=== PATIENT | female | born 1940 | race African-American/Black ===

== ENCOUNTER 2017-05-13 20:24 | Emergency (ER) | payer MEDICARE, OTHER ==
[~2017-05-13] VITALS: Ht 175.3 cm; Wt 61.2 kg
[~2017-05-13 20:24] MED LIST: BENADRYL25 M3 PO; NORCO 5-325 TA1 EACH ORAL; PHENERGAN6.25 MG/5 ORAL; PREDNISONE20 MG ORAL; RANITIDINE HCL150 MG ORAL; TESSALON PERLE100 M2 ORAL
[2017-05-13 21:00] VITALS: BP 184/95
[2017-05-13 21:30] VITALS: BP 184/95
--- NOTE | 2017-05-13 23:52 | Emergency Room Report ---
History of Present Illness General Chief Complaint: General Complaint Source: Patient Present Illness HPI 69-year-old female presenting with blisters in mouth or more than one week. Patient states that she had one blister in her mouth 2 weeks ago which went away , states that she had a right blister/bubble that she noticed today. Patient denies any pain. Patient states that she put Orajel without relief. Allergies: Coded Allergies: PEPPERMINT (Verified Allergy, Severe, cant breath, 01/24/15) ASPIRIN (Verified Allergy, Mild, ABDOMINAL PAIN, 10/06/11) Patient History Past Medical History: see triage record Past Surgical History: none Pertinent Family History: none Last Menstrual Period: n/a Reviewed Nursing Documentation: PMH: Agreed, PSxH: Agreed Nursing Documentation-PMH Hx Cardiac Problems: Yes - HIGH CHOL Hx Hypertension: Yes Hx Cancer: Yes - thyroid with Surgery. Hx Gastrointestinal Problems: Yes - colon surgery for cyst Review of Systems All Other Systems: negative except mentioned in HPI Physical Exam Vital Signs Date Time Temp Pulse Resp B/P (MAP) Pulse Ox O2 Delivery O2 Flow Rate FiO2 05/13/17 20:53 98.1 59 18 184/95 99 Room Air Sp02 EP Interpretation: reviewed, normal General Appearance: normal inspection, well appearing, no apparent distress, alert, GCS 15, non-toxic Head: normocephalic, atraumatic Eyes: bilateral eye normal inspection, bilateral eye PERRL, bilateral eye EOMI ENT: normal voice, moist mucus membranes, other - Right lower molars absent, 2 x 2 palpable purpleish fluid-filled, abnormality, and not painful, and no signs of infection Neck: normal inspection, full range of motion, supple Respiratory: normal inspection, lungs clear, normal breath sounds, no respiratory distress, no retraction, no wheezing, speaking full sentences, chest symmetrical Cardiovascular #1: normal inspection, regular rate, rhythm, no edema, normal capillary refill Cardiovascular #2: 2+ radial (R), 2+ radial (L) Gastrointestinal: normal inspection, non tender, soft, non-distended, no guarding Musculoskeletal: normal inspection, back normal, normal range of motion, non- tender Neurologic: normal inspection, alert, oriented x3, responsive, motor strength/ tone normal, sensory intact, normal gait, speech normal Psychiatric: normal inspection, judgement/insight normal, memory normal Skin: normal inspection, normal color, no rash, warm/dry, well hydrated, normal turgor Medical Decision Making Diagnostic Impression: Primary Impression: Chronic gum disease ER Course 69-year-old female with gum blisters DDX: Gingival disease, gingivitis, no signs of oral cellulitis ? Blister on the gum Plan: None emergency room ER course: Patient has remained stable during ED stay. Disposition: Patient is to be discharged to home. Patient is instructed to follow up with their dentist within 5 days. Strict return precautions discussed with patient such as fever, chills, worsening/severe pain, nausea, vomiting, which may indicate severe illness. Patient verbalizes understanding and agrees with plan. Please note that this Emergency Department Report was dictated using [employer] specialist technology software, occasionally this can lead to erroneous entry secondary to interpretation by the dictation equipment Last Vital Signs Date Time Temp Pulse Resp B/P (MAP) Pulse Ox O2 Delivery O2 Flow Rate FiO2 05/13/17 21:30 98.1 18 184/95 99 Room Air 05/13/17 20:53 59 Disposition: HOME, SELF-CARE Condition: Stable Referrals: DANIEL HOFFMANN M.D. (PCP) Patient Instructions: Gingivitis, [id number] Additional Instructions: Please followup with your dentist in one week Selena Singer M.D. May 13, 2017 23:52
== END 2017-05-13 21:29 | disposition home or self-care (01) ==
LOC: EMR 20:58
DX: K06.8 Other specified disorders of gingiva and edentulous alveolar ridge (principal); I10 Essential (primary) hypertension; Z85.850 Personal history of malignant neoplasm of thyroid; Z88.6 Allergy status to analgesic agent; Z98.890 Other specified postprocedural states
CPT/HCPCS: 99282

== ENCOUNTER 2017-05-21 10:40 | Emergency (ER) | payer MEDICARE, OTHER ==
[~2017-05-21] VITALS: Ht 175.3 cm; Wt 61.2 kg
[2017-05-21] MEDS ORDERED: OMEPRAZOLE20 M2 ORAL (10:57)
[2017-05-21] MEDS ORDERED: ATORVASTATIN CA20 MG ORAL (10:57)
[2017-05-21] MEDS ORDERED: LORATADINE5 MG/5 M3 PO (10:57)
[2017-05-21] MEDS ORDERED: CARVEDILOL12.5 MG ORAL (10:57)
[2017-05-21] MEDS ORDERED: Carvedilol 12.5mg tab ORAL STA (11:04)
[2017-05-21 11:26] VITALS: BP 176/93
--- NOTE | 2017-05-21 11:46 | Diagnostic Imaging Report ---
Indication: Chest pain Technique: One view of the chest Comparison: 01/14/2013 chest one view Findings: Lungs and pleural spaces are clear. Heart size is normal. Aorta is tortuous and calcified. There is no significant change Impression: No acute chest disease.
[2017-05-21 11:48] LABS: BASOPHILS % (AUTO) 1.1 % (0.0-2.0); EOSINOPHILS % (AUTO) 1.1 % (0.0-3.0); HEMATOCRIT 37.4 % (37.0-47.0); HEMOGLOBIN 11.9 G/DL (12.0-16.0); LYMPHOCYTES % (AUTO) 26.4 % (20.0-45.0); MEAN CORPUSCULAR VOLUME 88 FL (80-99); MONOCYTES % (AUTO) 8.4 % (1.0-10.0); NEUTROPHILS % (AUTO) 62.9 % (45.0-75.0); PLATELET COUNT 179 K/UL (150-450); RED BLOOD COUNT 4.25 M/UL (4.20-5.40); RED CELL DISTRIBUTION WIDTH 12.5 % (11.6-14.8); WHITE BLOOD COUNT 4.6 K/UL (4.8-10.8)
[2017-05-21 11:54] LABS: ANION GAP 7 mmol/L (5-15); BLOOD UREA NITROGEN 13 mg/dL (7-18); CALCIUM 9.5 MG/DL (8.5-10.1); CARBON DIOXIDE 31 MMOL/L (21-32); CHLORIDE 104 MMOL/L (98-107); POTASSIUM 3.7 MMOL/L (3.5-5.1); SODIUM 142 MMOL/L (136-145)
[2017-05-21 12:05] LABS: ALANINE AMINOTRANSFERASE 20 U/L (12-78); ALBUMIN 4.1 G/DL (3.4-5.0); ALKALINE PHOSPHATASE 64 U/L (46-116); ASPARTATE AMINO TRANSFERASE 18 U/L (15-37); BILIRUBIN,TOTAL 1.4 MG/DL (0.2-1.0); CREATINE KINASE 97 U/L (26-308)
[2017-05-21] MEDS ORDERED: Nitroglycerin Subl 0.4mg tab SL STA (12:11)
[2017-05-21] MEDS ORDERED: Nitroglycerin 2% oint pkt TOPIC ONE (12:15)
[2017-05-21] MEDS ORDERED: Aspirin Baby 81mg ORAL ONE (12:15)
[2017-05-21 12:17] LABS: BILIRUBIN,DIRECT 0.2 MG/DL (0.0-0.3)
--- NOTE | 2017-05-21 12:18 | Emergency Room Report ---
History of Present Illness General Chief Complaint: Hypertension Source: Patient, Medical Record Present Illness HPI The patient presents with hypertension. She states that when she was seen here for problem with her gums a week ago her discharge blood pressure is 185/90. She's been under a lot of stress with her son who is recently . She's finished squaring away that problem but still is left with high blood pressure. She checked herself with wrist cuff at her pressure to 209 systolic. She came here seeking treatment. She has not taken her blood pressure medicine today. She usually takes it in the afternoon. The patient denies any fevers, chills, dyspnea dyspnea on exertion or chest pain , palpitations, nausea, vomiting, diarrhea dysuria, back or joint pain. She has got gum disease. This is doing better. Allergies: Coded Allergies: PEPPERMINT (Verified Allergy, Severe, cant breath, 01/24/15) Patient History Past Medical History: see triage record Past Surgical History: other - thyroid surgery, colon surgery Social History: Denies: smoking, alcohol use, drug use Social History Narrative at home Reviewed Nursing Documentation: PMH: Agreed, PSxH: Agreed Nursing Documentation-PMH Past Medical History: No History, Except For Hx Hypertension: Yes Hx Cancer: Yes - thyroid with Surgery. Hx Gastrointestinal Problems: Yes - colon surgery for cyst Review of Systems All Other Systems: negative except mentioned in HPI Physical Exam Vital Signs Date Time Temp Pulse Resp B/P (MAP) Pulse Ox O2 Delivery O2 Flow Rate FiO2 05/21/17 10:49 98.1 68 16 212/99 99 Room Air Sp02 EP Interpretation: reviewed, normal General Appearance: well appearing, no apparent distress, GCS 15 Head: normocephalic Eyes: bilateral eye normal inspection, bilateral eye PERRL ENT: moist mucus membranes Neck: supple Respiratory: chest non-tender, lungs clear, normal breath sounds Cardiovascular #1: regular rate, rhythm Cardiovascular #2: 2+ radial (R) Gastrointestinal: normal inspection, normal bowel sounds, non tender, no mass, non-distended Musculoskeletal: back normal, gait/station normal, normal range of motion Neurologic: alert, oriented x3, grossly normal Psychiatric: mood/affect normal, no suicidal/homicidal ideation, other - reports recent stress Skin: normal inspection, warm/dry Procedures Critical Care Time Critical Care Time Total Critical Care Time: 30 min bedside evaluation and treatment excludes procedures (EKG). Reason for critical care: NSTEMI, HTN Possible complications: hypotension, hypertension, OH, shock, arrhythmias, metabolic acidosis, end organ damage, respiratory failure. Interventions: Patient with HTN. Given her medications. Evaluation with + troponin. Aspirin given (with review of stated allergy). Nitrates also given. Metoprolol also ordered. Discussion with [facility] cardiology and internal medicine and arrangement for transfer to higher level of care. Improved. Discussed with patient process and expectations. Heparin held due to abnormal CXR. Course: Consultations: nursing staff, EMS, family, [facility] cardiology, internal medicine Performed by: Dr. Edwards Tolerated well condition = serious Medical Decision Making Diagnostic Impression: Primary Impression: NSTEMI (non-ST elevated myocardial infarction) Additional Impression: HTN (hypertension) Qualified Codes: I10 - Essential (primary) hypertension ER Course The patient presents with hypertension. She denies any other symptoms. Differential includes acute renal failure, exacerbation of hypertension, hypertensive urgency and malignant hypertension. Evaluation will be with EKG, labs and chest x-ray. EKG shows normal sinus rhythm with sinus arrhythmia rate of 66 normal intervals and looks like left ventricular hypertrophy. Chest x-ray shows tortuous aorta with calcifications noted. 12:15 Lab called with positive troponin. Patient is pain-free at this time. She'll be given aspirin. Her allergy" is tearing up her stomach. It also should be given nitrates. Will be faxed the EKG to serous and investigating whether she will be transferred to their facility. EKG repeated: NSR, LVH, NSSTTW changes. Rate 66. Discussed with Dr. Beal at [facility] who accepts patient for cath though not emergent. Wants the Internal Medicine Service to take care of patient. BP is better and patient still pain free. I am holding off on heparin as the patient has a tortuous aorta. Metoprolol given. Still pain free. Consider echo prior to heparin. Discussed with Dr. Bang at [facility] who accepts the patient. Patient transferred ALS to [facility], improved but serious. Laboratory Tests Test 05/21/17 11:15 White Blood Count 4.6 K/UL (4.8-10.8) L Red Blood Count 4.25 M/UL (4.20-5.40) Hemoglobin 11.9 G/DL (12.0-16.0) L Hematocrit 37.4 % (37.0-47.0) Mean Corpuscular Volume 88 FL (80-99) Mean Corpuscular Hemoglobin 28.0 PG (27.0-31.0) Mean Corpuscular Hemoglobin Concent 31.8 G/DL (32.0-36.0) L Red Cell Distribution Width 12.5 % (11.6-14.8) Platelet Count 179 K/UL (150-450) Mean Platelet Volume 13.0 FL (6.5-10.1) H Neutrophils (%) (Auto) 62.9 % (45.0-75.0) Lymphocytes (%) (Auto) 26.4 % (20.0-45.0) Monocytes (%) (Auto) 8.4 % (1.0-10.0) Eosinophils (%) (Auto) 1.1 % (0.0-3.0) Basophils (%) (Auto) 1.1 % (0.0-2.0) Prothrombin Time 10.1 SEC (9.30-11.50) Prothrombin Time INR 1.0 (0.9-1.1) PTT 25 SEC (23-33) Sodium Level 142 MMOL/L (136-145) Potassium Level 3.7 MMOL/L (3.5-5.1) Chloride Level 104 MMOL/L (98-107) Carbon Dioxide Level 31 MMOL/L (21-32) Anion Gap 7 mmol/L (5-15) Blood Urea Nitrogen 13 mg/dL (7-18) Creatinine 1.0 MG/DL (0.55-1.30) Estimate Glomerular Filtration Rate mL/min (>60) Glucose Level 94 MG/DL (74-106) Calcium Level 9.5 MG/DL (8.5-10.1) Total Bilirubin 1.4 MG/DL (0.2-1.0) H Direct Bilirubin 0.2 MG/DL (0.0-0.3) Aspartate Amino Transferase (AST) 18 U/L (15-37) Alanine Aminotransferase (ALT) 20 U/L (12-78) Alkaline Phosphatase 64 U/L (46-116) Total Creatine Kinase 97 U/L (26-308) Troponin I 0.135 ng/mL (0.000-0.056) Pro-B-Type Natriuretic Peptide 237 pg/mL (0-125) H Total Protein 8.1 G/DL (6.4-8.2) Albumin 4.1 G/DL (3.4-5.0) Globulin 4.0 g/dL Albumin/Globulin Ratio 1.0 (1.0-2.7) EKG Diagnostic Results Rate: normal Rhythm: NSR ST Segments: no acute changes Rhythm Strip Diag. Results EP Interpretation: yes Rhythm: NSR, no PVC's, no ectopy Chest X-Ray Diagnostic Results Chest X-Ray Diagnostic Results : Chest X-Ray Ordered: Yes # of Views/Limited/Complete: 1 View Indication: Other Interpretation: no consolidation, no effusion, no pneumothorax, other - tortuous aorta Impression: Other Electronically Signed by: Electronically signed by Jean-Paul Edwards MD Last Vital Signs Date Time Temp Pulse Resp B/P (MAP) Pulse Ox O2 Delivery O2 Flow Rate FiO2 05/21/17 14:57 98.1 62 15 163/95 99 Room Air Status: improved Disposition: XFER SHT-TRM HOSP - higher level of care Condition: Serious Referrals: NON PHYSICIAN (PCP) Jean-Paul Edwards M.D. May 21, 2017 12:18
[2017-05-21] MEDS ORDERED: Metoprolol 5mg/5ml Inj IVP SCH (12:30)
[2017-05-21 13:09] VITALS: BP 156/92
[2017-05-21 14:37] VITALS: BP 163/95
[2017-05-21 14:57] VITALS: BP 163/95
--- NOTE | 2017-05-29 15:57 | Cardiology Report ---
APPROVED REPORT EKG Measurement Heart [id number] 128P-14 [id number] Normal sinus rhythm with sinus arrhythmia Normal ECG
--- NOTE | 2017-05-29 15:57 | Cardiology Report ---
APPROVED REPORT EKG Measurement Heart [id number] 128P-14 [id number] Normal sinus rhythm with sinus arrhythmia Normal ECG
--- NOTE | 2017-05-29 15:57 | Cardiology Report ---
APPROVED REPORT EKG Measurement Heart [id number] 128P-14 [id number] Normal sinus rhythm with sinus arrhythmia Normal ECG
== END 2017-05-21 14:59 | disposition short-term general hospital (02) ==
LOC: EMR 11:18
DX: I21.4 Non-ST elevation (NSTEMI) myocardial infarction (principal); I10 Essential (primary) hypertension; Z85.850 Personal history of malignant neoplasm of thyroid
CPT/HCPCS: 36415; 71010; 80053; 82248; 82550; 83880; 84484; 85025; 85610; 85730; 93005; 96374; 99291

== ENCOUNTER 2017-05-23 10:37 | Emergency (ER) | payer MEDICARE, OTHER ==
[~2017-05-23] VITALS: Ht 175.3 cm; Wt 59.9 kg
[~2017-05-23 10:37] MED LIST changes: +ATORVASTATIN CA20 MG ORAL; +CARVEDILOL12.5 MG ORAL; +LORATADINE5 MG/5 M3 PO; +OMEPRAZOLE20 M2 ORAL
[2017-05-23] MEDS ORDERED: OMEPRAZOLE20 M2 ORAL (11:05)
[2017-05-23] MEDS ORDERED: LORATADINE10 M3 PO (11:05)
[2017-05-23] MEDS ORDERED: CARVEDILOL12.5 MG ORAL (11:05)
--- NOTE | 2017-05-23 11:11 | Emergency Room Report ---
History of Present Illness General Chief Complaint: General Complaint Source: Patient Present Illness HPI 77YOF presents with asymptomatic HTN. Patient was just released from [facility] yesterday She was transferred from here with NSTEMI previously States cath was normal - "no blockages." [facility] physician upped her dose of Carvedilol to 12.5mg BID She did not take this morning because her BP machine "showed error" at home and she was afraid to take it. She denies chest pain, headache, abd pain, flank pain Allergies: Coded Allergies: PEPPERMINT (Verified Allergy, Severe, cant breath, 01/24/15) Patient History Past Medical History: HTN Past Surgical History: none Pertinent Family History: none Social History: Denies: smoking, alcohol use, drug use Last Menstrual Period: na Now: No Immunizations: UTD Reviewed Nursing Documentation: PMH: Agreed, PSxH: Agreed Nursing Documentation-PMH Past Medical History: No History, Except For Hx Hypertension: Yes Hx Cancer: Yes - thyroid with Surgery. Hx Gastrointestinal Problems: Yes - colon surgery for cyst Review of Systems All Other Systems: negative except mentioned in HPI Physical Exam Vital Signs Date Time Temp Pulse Resp B/P (MAP) Pulse Ox O2 Delivery O2 Flow Rate FiO2 05/23/17 10:44 98.2 65 18 190/80 98 Room Air Sp02 EP Interpretation: reviewed, normal General Appearance: normal inspection, well appearing, no apparent distress, alert, GCS 15, non-toxic Head: normocephalic, atraumatic Eyes: bilateral eye PERRL, bilateral eye EOMI ENT: normal ENT inspection, hearing grossly normal, normal voice Neck: normal inspection, full range of motion, supple, no bony tend Respiratory: normal inspection, lungs clear, normal breath sounds, no respiratory distress, no retraction, no wheezing Cardiovascular #1: regular rate, rhythm, no edema Gastrointestinal: normal inspection, normal bowel sounds, non tender, soft, no guarding, no hernia Genitourinary: no CVA tenderness Musculoskeletal: normal inspection, back normal, normal range of motion, Lea' s Sign negative Neurologic: normal inspection, alert, oriented x3, responsive, speech normal Psychiatric: normal inspection, judgement/insight normal, mood/affect normal Skin: normal inspection, normal color, no rash Medical Decision Making Diagnostic Impression: Primary Impression: HTN (hypertension) Qualified Codes: I10 - Essential (primary) hypertension ER Course Asymptomatic HTN VS with elevated SBP in ED No complaints Was given her AM dose of carvedilol in ED Advised close PMD followup in 2-3 days DC home Last Vital Signs Date Time Temp Pulse Resp B/P (MAP) Pulse Ox O2 Delivery O2 Flow Rate FiO2 05/23/17 10:44 98.2 65 18 190/80 98 Room Air Status: improved Disposition: HOME, SELF-CARE Condition: Improved Referrals: NON PHYSICIAN (PCP) Patient Instructions: Hypertension, [id number] Additional Instructions: - Take your BP medication as prescribed, twice a day - Follow up with your doctor in 2-3 days PHILIPP VALERO M.D. May 23, 2017 11:11
[2017-05-23] MEDS ORDERED: Carvedilol 12.5mg tab ORAL ONE (11:15)
[2017-05-23 11:19] VITALS: BP 195/107
== END 2017-05-23 11:24 | disposition home or self-care (01) ==
LOC: EMR 10:51
DX: I10 Essential (primary) hypertension (principal); Z85.850 Personal history of malignant neoplasm of thyroid; Z98.890 Other specified postprocedural states
CPT/HCPCS: 99283

== ENCOUNTER 2017-05-24 11:23 | Emergency (ER) | payer MEDICARE, OTHER ==
[~2017-05-24] VITALS: Ht 175.3 cm; Wt 58.1 kg
[~2017-05-24 11:23] MED LIST changes: +LORATADINE10 M3 PO
[2017-05-24 11:41] VITALS: BP 153/80
[2017-05-24 12:04] VITALS: BP 153/80
--- NOTE | 2017-05-24 12:34 | Emergency Room Report ---
History of Present Illness General Chief Complaint: General Complaint Source: Patient Present Illness HPI 77-year-old female presents ED. Patient states her blood pressure is high. Patient checked her blood pressure this morning it was high. Took her morning dose of carvedilol and states it is not resolved and she came here. Patient states she feels fine. Denies any headaches. Denies any blurry vision or nausea or vomiting. Denies chest pain or shortness of breath. Patient was seen here yesterday with similar presentation. No other aggravating relieving factors. Denies any other associated symptom Allergies: Coded Allergies: PEPPERMINT (Verified Allergy, Severe, cant breath, 01/24/15) Patient History Past Medical History: HTN, other - colon cancer Past Surgical History: none Pertinent Family History: none Social History: Denies: smoking, alcohol use, drug use Now: No Immunizations: UTD Reviewed Nursing Documentation: PMH: Agreed, PSxH: Agreed Nursing Documentation-PMH Hx Hypertension: Yes Hx Cancer: Yes - thyroid with Surgery. Hx Gastrointestinal Problems: Yes - colon surgery for cyst Review of Systems All Other Systems: negative except mentioned in HPI Physical Exam Vital Signs Date Time Temp Pulse Resp B/P (MAP) Pulse Ox O2 Delivery O2 Flow Rate FiO2 05/24/17 11:28 98.1 74 20 188/93 99 Room Air Sp02 EP Interpretation: reviewed, normal General Appearance: no apparent distress, alert, GCS 15, non-toxic Head: normocephalic, atraumatic Eyes: bilateral eye normal inspection, bilateral eye PERRL ENT: hearing grossly normal, normal pharynx, no angioedema, normal voice Neck: full range of motion, supple/symm/no masses Respiratory: chest non-tender, lungs clear, normal breath sounds, speaking full sentences Cardiovascular #1: regular rate, rhythm, no edema Cardiovascular #2: 2+ carotid (R), 2+ carotid (L), 2+ radial (R), 2+ radial (L) , 2+ dorsalis pedis (R), 2+ dorsalis pedis (L) Gastrointestinal: normal bowel sounds, non tender, soft, non-distended, no guarding, no rebound Rectal: deferred Genitourinary: normal inspection, no CVA tenderness Musculoskeletal: back normal, gait/station normal, normal range of motion, non- tender Neurologic: alert, oriented x3, responsive, motor strength/tone normal, sensory intact, speech normal Psychiatric: judgement/insight normal, memory normal, mood/affect normal, no suicidal/homicidal ideation Reflexes: 3+ bicep (R), 3+ bicep (L), 3+ tricep (R), 3+ tricep (L), 3+ knee (R) , 3+ knee (L) Skin: normal color, no rash, warm/dry, well hydrated Lymphatic: no adenopathy Medical Decision Making Diagnostic Impression: Primary Impression: HTN (hypertension) Qualified Codes: I10 - Essential (primary) hypertension ER Course Hospital Course 77-year-old female presents ED stay her blood pressure is high. asyptomatic Differential diagnoses include: hypertensive urgency, hypertensive emergency, anxiety Clinical course Patient placed on stretcher. After initial history, physical exam reveals an elderly female in no acute distress. Physical exam is unremarkable Upon reassessment patient's BP has reduced on its own without intervention. Patient to be safely discharged to home and take medications as prescribed I. I feel this is a highly complex case requiring extensive working including EKG/Rhythm strip, Xray/CT/US, Blood/urine lab work, repeat exams while in ED, and administration of strong opiates/narcotics for pain control, admission to hospital or close patient follow up. Diagnosis - hypertension Stable and discharged to home. take medications as prescribed. Instructed to followup with PMD. Return to ED if symptoms recur or worsen Last Vital Signs Date Time Temp Pulse Resp B/P (MAP) Pulse Ox O2 Delivery O2 Flow Rate FiO2 05/24/17 12:04 98.1 68 20 153/80 99 Room Air Status: improved Disposition: HOME, SELF-CARE Condition: Stable Referrals: NON PHYSICIAN (PCP) Patient Instructions: Hypertension, [id number] DANNY ANDERSON M.D. May 24, 2017 12:34
== END 2017-05-24 12:09 | disposition home or self-care (01) ==
LOC: EMR 12:00
DX: I10 Essential (primary) hypertension (principal); Z91.048 Other nonmedicinal substance allergy status; Z85.850 Personal history of malignant neoplasm of thyroid
CPT/HCPCS: 99282

== ENCOUNTER 2017-06-13 17:06 | Emergency (ER) | payer MEDICARE, OTHER ==
[~2017-06-13] VITALS: Ht 175.3 cm; Wt 61.2 kg
[2017-06-13] MEDS ORDERED: ATORVASTATIN CA40 MG ORAL (17:24)
[2017-06-13] MEDS ORDERED: CARVEDILOL25 MG ORAL (17:24)
[2017-06-13 17:30] VITALS: BP 184/93
[2017-06-13 18:30] VITALS: BP 170/78
--- NOTE | 2017-06-13 18:58 | Emergency Room Report ---
History of Present Illness General Chief Complaint: Hypertension Source: Patient Present Illness HPI 77-year-old female presents ED for evaluation. Patient referred by PMD for evaluation of hypertension. Patient was in PMD office today and blood pressure was elevated. Patient has history of hypertension is currently on medication. States that she does not believe her medications are working well. patient states her blood pressure medications were recently increased in dosage. Upon arrival patient states she feels fine. Denies chest pain or shortness of breath. Denies headaches or dizziness. No other aggravating relieving factors. Denies any other associated symptoms Allergies: Coded Allergies: PEPPERMINT (Verified Allergy, Severe, cant breath, 01/24/15) Patient History Past Medical History: HTN Past Surgical History: none Pertinent Family History: none Social History: Denies: smoking, alcohol use, drug use Now: No Immunizations: UTD Reviewed Nursing Documentation: PMH: Agreed, PSxH: Agreed Nursing Documentation-PMH Hx Hypertension: Yes Hx Cancer: Yes - thyroid with Surgery. Hx Gastrointestinal Problems: Yes - colon surgery for cyst Review of Systems All Other Systems: negative except mentioned in HPI Physical Exam Vital Signs Date Time Temp Pulse Resp B/P (MAP) Pulse Ox O2 Delivery O2 Flow Rate FiO2 06/13/17 17:11 98.1 63 16 211/96 99 Room Air 06/13/17 17:30 100 Sp02 EP Interpretation: reviewed, normal General Appearance: no apparent distress, alert, GCS 15, non-toxic Head: normocephalic, atraumatic Eyes: bilateral eye normal inspection, bilateral eye PERRL ENT: hearing grossly normal, normal pharynx, no angioedema, normal voice Neck: full range of motion, supple/symm/no masses Respiratory: chest non-tender, lungs clear, normal breath sounds, speaking full sentences Cardiovascular #1: regular rate, rhythm, no edema Cardiovascular #2: 2+ carotid (R), 2+ carotid (L), 2+ radial (R), 2+ radial (L) , 2+ dorsalis pedis (R), 2+ dorsalis pedis (L) Gastrointestinal: normal bowel sounds, non tender, soft, non-distended, no guarding, no rebound Rectal: deferred Genitourinary: normal inspection, no CVA tenderness Musculoskeletal: back normal, gait/station normal, normal range of motion, non- tender Neurologic: alert, oriented x3, responsive, motor strength/tone normal, sensory intact, speech normal Psychiatric: judgement/insight normal, memory normal, mood/affect normal, no suicidal/homicidal ideation Reflexes: 3+ bicep (R), 3+ bicep (L), 3+ tricep (R), 3+ tricep (L), 3+ knee (R) , 3+ knee (L) Skin: normal color, no rash, warm/dry, well hydrated Lymphatic: no adenopathy Medical Decision Making Diagnostic Impression: Primary Impression: Hypertension Qualified Codes: I10 - Essential (primary) hypertension ER Course Hospital Course 77-year-old female presents ED complaining of elevated BP, otherwise asymptomatic Differential diagnoses include: hypertensive urgency, hypertensive emergency, arrythmia Clinical course Patient placed on stretcher. After initial history physical exam reveals an elderly female in no acute distress. physical exam is unremarkable. There is no focal neurological deficits. Patient has no chest pain. given clonidine in ED. Upon reassessment patient's BP has reduced on its own without intervention. Patient has been here previously for similar presentation asymptomatic hypertension. Patient was given prescriptions today for additional blood pressure medications. I recommend that patient told his prescriptions as directed. I see no reason for further intervention at this time I. I feel this is a highly complex case requiring extensive working including EKG/Rhythm strip, Xray/CT/US, Blood/urine lab work, repeat exams while in ED, and administration of strong opiates/narcotics for pain control, admission to hospital or close patient follow up. Diagnosis - hypertension Stable and discharged to home. fill prescriptions provided by PMD. Instructed to followup with PMD. Return to ED if symptoms recur or worsen Last Vital Signs Date Time Temp Pulse Resp B/P (MAP) Pulse Ox O2 Delivery O2 Flow Rate FiO2 06/13/17 18:30 98.3 60 13 170/78 100 Room Air 100 Status: improved Disposition: HOME, SELF-CARE Condition: Stable Referrals: NON PHYSICIAN (PCP) Patient Instructions: Hypertension, [id number] DANNY ANDERSON M.D. Jun 13, 2017 18:58
== END 2017-06-13 18:30 | disposition home or self-care (01) ==
LOC: EMR 17:34
DX: I10 Essential (primary) hypertension (principal)
CPT/HCPCS: 99283

== ENCOUNTER 2017-10-26 21:47 | Emergency (ER) | payer MEDICARE, OTHER ==
[~2017-10-26] VITALS: Ht 175.3 cm; Wt 61.2 kg
[~2017-10-26 21:47] MED LIST changes: +ATORVASTATIN CA40 MG ORAL; +CARVEDILOL25 MG ORAL
[2017-10-26] MEDS ORDERED: MIRALAX17 G2 ORAL (22:02)
[2017-10-26] MEDS ORDERED: SENNA8.6 M2 PO (22:02)
[2017-10-26] MEDS ORDERED: COLACE100 MG ORAL (22:02)
--- NOTE | 2017-10-26 22:09 | Emergency Room Report ---
History of Present Illness General Chief Complaint: Pain Source: Patient, Medical Record Present Illness HPI This is 77-year-old female presents with chief complaint of something stuck in her throat. Onset today. She's been having throat pain for about 3 weeks and saw him nose and throat Dr. today. Fiberoptic scope was done and according to patient everything was normal. She went home and took her Colace pill and said that it hurts when she swallow. She felt it was stuck to the top of her throat. She said she tried to gag and throw it up but noticed some blood. Denies any other problem. Hurts to swallow. She is eating drinking without any problem. No drooling. Allergies: Coded Allergies: PEPPERMINT (Verified Allergy, Severe, cant breath, 01/24/15) ASPIRIN (Verified Allergy, Unknown, 10/26/17) diarrhea Patient History Past Medical History: see triage record, old chart reviewed, HTN Past Surgical History: other Pertinent Family History: none Social History: Denies: smoking Now: No Immunizations: other Reviewed Nursing Documentation: PMH: Agreed; PSxH: Agreed Nursing Documentation-PMH Hx Hypertension: Yes Hx Cancer: Yes - thyroid with Surgery. Hx Gastrointestinal Problems: Yes - colon surgery for cyst Review of Systems Eye: Denies: eye pain, blurred vision ENT: Denies: ear pain, nose congestion, throat swelling Respiratory: Denies: cough, shortness of breath Cardiovascular: Denies: chest pain, palpitations Gastrointestinal: Denies: abdominal pain, diarrhea, nausea, vomiting Musculoskeletal: Denies: back pain, joint pain Skin: Denies: rash Neurological: Denies: headache, numbness Endocrine: Denies: increased thirst, increased urine Hematologic/Lymphatic: Denies: easy bruising All Other Systems: negative except mentioned in HPI Physical Exam Vital Signs Date Time Temp Pulse Resp B/P (MAP) Pulse Ox O2 Delivery O2 Flow Rate FiO2 10/26/17 21:58 98.2 72 24 184/89 100 Room Air 98.2 vitals with high blood pressure Sp02 EP Interpretation: reviewed, normal General Appearance: well appearing, no apparent distress, alert Head: normocephalic, atraumatic Eyes: bilateral eye PERRL, bilateral eye EOMI ENT: hearing grossly normal, pharyngeal erythema, other - no obvious foreign body Neck: full range of motion, supple, no meningismus Respiratory: chest non-tender, lungs clear, normal breath sounds Cardiovascular #1: regular rate, rhythm, no murmur Gastrointestinal: normal bowel sounds, non tender, no mass, no organomegaly, no bruit, non-distended Musculoskeletal: back normal, gait/station normal, normal range of motion Psychiatric: mood/affect normal Skin: warm/dry Medical Decision Making Diagnostic Impression: Primary Impression: Globus sensation Additional Impression: Benign essential HTN ER Course Patient with a foreign body sensation to the throat. I suspect is more anxiety related. The no obvious obstruction. She eating and drinking without a problem. We'll discharge home with referral to see ENT. Last Vital Signs Date Time Temp Pulse Resp B/P (MAP) Pulse Ox O2 Delivery O2 Flow Rate FiO2 10/26/17 21:58 98.2 72 24 184/89 100 Room Air 98.2 Status: improved Disposition: HOME, SELF-CARE Condition: Stable Additional Instructions: Follow-up with your doctor in 7 days. You may need another referral to see ENT doctor. Return if symptom worsen. Take your blood pressure medication. JEN ROBERSON M.D. Oct 26, 2017 22:09
[2017-10-26 22:11] VITALS: BP 184/89
[2017-10-26] MEDS ORDERED: Mylanta II UD 30ml ORAL ONE (22:15)
[2017-10-26] MEDS ORDERED: Lidocaine 2% Visc 15ml soln ORAL ONE (22:15)
== END 2017-10-26 22:52 | disposition home or self-care (01) ==
LOC: EMR 22:52
DX: R20.8 Other disturbances of skin sensation (principal); I10 Essential (primary) hypertension; Z88.6 Allergy status to analgesic agent
CPT/HCPCS: 99283